=== PATIENT | female | born 1960 | race Caucasian/White ===

== ENCOUNTER → 2017-06-30 | Outpatient (REF) ==
[~2017-06-30] MED LIST: ASPIRIN 32325 MG/TAB PO; ASPIRIN 81M81 MG/TA2 PO; GLUCOPHAGE1000 MG PO; JANUVIA 100MG100 MG PO; LANTUS100 U/ML SC; MOBIC15 MG PO; PERCOCET 325 MG1 TA2 PO; PRINIVIL5 MG PO; ZOCOR 10MG10 MG PO
== END ==
LOC: ZLAB.WCH 18:06
DX: Z01.89 Encounter for other specified special examinations (principal)

== ENCOUNTER 2022-08-01 21:38 | Observation (INO) | payer SELFPAY ==
[~2022-08-01] VITALS: Ht 165.1 cm; Wt 233.0 kg
--- NOTE | 2022-08-01 22:00 | NUR ---
Pt to PACU via EMS for surgery. Pt verified and ID bracelet placed. Pre-op checklist, admission form, covid screen, home medication and allergies reviewed. VS obtained, Bp elevated. Pt's sister to be updated after procedure she is not here at this time. LR infusing into IV in right hand from the [place] [facility] after flushing. Physician, SHAKE SPLITTER and CLINICAL RESOURCE MANAGER interview pt. Pt in gown with glasses removed. Consent signed as directed by physician. Blood sugar of 146.
[2022-08-01 22:10] VITALS: BP 189/80; PULSE 73; TEMP 98.9
[2022-08-01] MEDS ORDERED: TENORMIN 2525 MG/TAB (22:24)
[2022-08-01] MEDS ORDERED: HUMALOG100 U/ML (22:25)
[2022-08-01 23:20] VITALS: BP 165/51; PULSE 75
[2022-08-01 23:35] VITALS: BP 166/48; PULSE 76
[2022-08-01 23:50] VITALS: BP 168/53; PULSE 76
[2022-08-02 00:05] VITALS: BP 163/51; PULSE 78
[2022-08-02 00:35] VITALS: BP 157/50; PULSE 76
[2022-08-02 01:10] VITALS: BP 158/45; PULSE 72
[2022-08-02 02:05] VITALS: BP 155/44; PULSE 71
[2022-08-02 03:07] VITALS: BP 154/37; PULSE 66
[2022-08-02] MEDS ORDERED: PYRIDIUM 100MG100 MG PO (07:23)
[2022-08-02 07:55] VITALS: BP 149/48; PULSE 67; TEMP 98.8
[2022-08-02 08:41] LABS: CALCIUM 8.9 mg/dL (8.4-10.2); CREATININE, serum 1.61 mg/dL (0.57-1.11); POTASSIUM 4.2 mmol/L (3.5-4.5)
== END 2022-08-02 10:42 | disposition home or self-care (01) ==
LOC: SURG 21:38
PROVIDERS: ADMIT Urology
DX: N20.1 Calculus of ureter (principal); E11.9 Type 2 diabetes mellitus without complications; I10 Essential (primary) hypertension; Z79.4 Long term (current) use of insulin
CPT/HCPCS: C1769; C2617; G0378; J0690; J0696; J2405; J2704; J3010

== ENCOUNTER 2023-08-07 13:37 | Day surgery (SDC) | payer SELFPAY ==
[~2023-08-07] VITALS: Ht 165.1 cm; Wt 101.2 kg
[~2023-08-07 13:37] MED LIST changes: +HUMALOG100 U/ML; +PYRIDIUM 100MG100 MG PO; +TENORMIN 2525 MG/TAB
[2023-08-07 15:07] VITALS: BP 156/75; PULSE 74; TEMP 97.9
[2023-08-07] MEDS ORDERED: [UNRECOGNIZED DRUG - OTHER] PO (15:13)
[2023-08-07] MEDS ORDERED: TENORMIN 2525 MG/TAB PO (15:14)
[2023-08-07] MEDS ORDERED: MULTI VITAMINS1 TAB PO (15:14)
[2023-08-07] MEDS ORDERED: PRINIVIL5 MG PO (15:15)
[2023-08-07] MEDS ORDERED: UROCIT-K 1010 MEQ PO (15:17)
[2023-08-07] MEDS ORDERED: ZYLOPRIM 300MG300 MG PO (15:19)
[2023-08-07] MEDS ORDERED: ZOCOR 20MG20 MG PO (15:19)
[2023-08-07] MEDS ORDERED: INSULIN GL100 UNIT/2 SQ (15:20)
[2023-08-07] MEDS ORDERED: HUMALOG100 U/ML SQ ×2 (15:22→15:23)
--- NOTE | 2023-08-07 16:24 | NUR ---
1615: PT UP TO WALK TO BATHROOM TO VOID AND BACK TO GURNEY, STEADY GAIT. C/O SIGNIFICANT URETHRAL DISCOMFORT. PT'S TRIALS MANAGER MARY Morales NOTIFIED - VORB TO USE PACU/SDC ORDERS NOW FOR PAIN MGMT. PT A&O, NAD, VSS ON RA. PLACED ON MONINTOR FOLLOWING 25 MCG FENTANYL IVP - TOLERATING WELL.
[2023-08-07] MEDS ORDERED: NORCO 325 MG-51 TAB PO (19:12)
[2023-08-07 19:45] VITALS: BP 186/88; PULSE 116; TEMP 97.6
[2023-08-07 19:59] VITALS: BP 125/49; PULSE 104
[2023-08-07 20:14] VITALS: BP 108/48; PULSE 106
--- NOTE | 2023-08-07 20:26 | NUR ---
PATIENT ARRIVED TO FLOOR @1945 FROM PACU. PATIENT A&O X4 BP 186/88. PATIENT IN PAIN 4/10 IN UPPER BACK AND LOWER BACK. pATIENT STATES UNCOMFORT AND PAIN DUE TO BED. PATIENT NORMALLY LAYS AND SLEEPS IN A FIRM RECLINER. PATIENT REQUEST TO SIT IN HER PERSONAL WHEEL CHAIR OPPOSED TO BED. ALLOWED PATIENT TO SIT IN CHAIR TO RELEIVE BACK PAIN. PATIENT AWARE TO CALL FOR ASSISTANCE IF GOING TO AMBULATE. PATIENT WAS ABLE TO URINATE 200ML AT ARRIVAL AND HAD ONE INCONTENT EPISODE ON THE WAY UP TO FLOOR. CALL LIGHT IN REACH.
[2023-08-07 20:44] VITALS: BP 113/40; PULSE 110
--- NOTE | 2023-08-07 21:56 | NUR ---
BRIDGER RATING BACK PAIN @ 8/10 PAIN MEDS GIVEN ORDERED. PATIENT STATES THIS IS CHRONIC BACK PAIN THAT SHE HAS EVERYDAY.
[2023-08-07 22:28] VITALS: BP 172/70; PULSE 97; TEMP 97.8
== END 2023-08-07 22:56 | disposition home or self-care (01) ==
LOC: SDCO 13:37 → SURG 19:22 → SDCO 22:56
DX: N20.2 Calculus of kidney with calculus of ureter (principal); I10 Essential (primary) hypertension; Z79.899 Other long term (current) drug therapy
CPT/HCPCS: OP; C1769; C2617; J0690; J1100; J2405; J2704; J3010; J7030